=== PATIENT | female | born 1965 | race Caucasian/White ===

== ENCOUNTER 2017-07-31 10:29 | Day surgery (SDC) | payer OTHER ==
[2017-07-30 10:32] VITALS: BMI 23.8
[2017-07-31] MEDS ORDERED: BUPIVACAINE HCL/EPINEPHRINE/PF 30 ML VIAL IJ ONE (11:41)
[2017-07-31] MEDS ORDERED: MIDAZOLAM HCL 2 MG/2 ML SINGLE DOSE VIAL ONE (12:12)
[2017-07-31] MEDS ORDERED: DEXAMETHASONE SOD PHOSPHATE 4 MG/1 ML VIAL ONE (12:13)
[2017-07-31] MEDS ORDERED: KETOROLAC TROMETHAMINE 30 MG/1 ML VIAL ONE (12:13)
[2017-07-31] MEDS ORDERED: ONDANSETRON 4 MG/2 ML VIAL ONE (12:13)
[2017-07-31] MEDS ORDERED: ceFAZolin SODIUM 1 GM VIAL ONE (12:13)
[2017-07-31] MEDS ORDERED: LIDOCAINE HCL/PF 2% SDV 5ML VIAL ONE (12:14)
[2017-07-31] MEDS ORDERED: KETAMINE HCL 200 MG/20 ML VIAL ONE (12:34)
[2017-07-31] MEDS ORDERED: BUPIVACAINE 0.25% /EPI 1:200,000 10 ML VIAL INF ONE (12:45)
[2017-07-31] MEDS ORDERED: PROPOFOL 20 ML ONE (13:02)
--- NOTE | 2017-07-31 13:24 | OP ---
Operative Note - Note: Operative Date: 07/31/17 Pre-Operative Diagnosis: LEft knee trochlea osteochondral defect Operation: LEft knee arthroscopy, debridement,curretage and drilling Post-Operative Diagnosis: Same as Pre-op Surgeon: Sorin Mazariegos Anesthesiologist/VETERINARY MEDICINE SCIENTIST: Elder Callahan Anesthesia: General Operative Report Dictated: Yes
--- NOTE | 2017-07-31 13:24 | DS ---
Physical Examination Vital Signs: Vital Signs Temperature 98.6 F 07/31/17 11:28 Pulse Rate 68 07/31/17 11:28 Respiratory Rate 16 07/31/17 11:28 Blood Pressure 135/85 07/31/17 11:28 O2 Sat by Pulse Oximetry (%) 100 07/31/17 11:28 Discharge Summary Reason For Visit: CHONDROMALACIA LEFT PATELLA KNEE Condition: Good - Instructions Diet, Activity, Other Instructions: Post Operative Instructions: Knee Arthroscopy Dr Sorin Mazariegos 1. Pain following an arthroscopy is variable. Some patients will have more pain than others. You have been provided with a prescription for medication that contains a narcotic. You are not allowed to drive while on this medication. You should NOT take Tylenol (Acetaminophen) when taking the pain medication ( it will result in an overdose). Feel free to take medications such as Ibuprofen or Naprosyn in addition to the pain medicine if you do not have any problems with the NSAID class of medications. 2. You are allowed to remove the bandages and shower in 24 hours. Do not peel off the glue. You are not allowed to bathe or go swimming until the for 2 weeks. Put band-aids on the incisions after your shower and do not put any creams or lotions over the incisions. 3. You are allowed to put all your weight on the leg and bend your knee. You should expect your knee to be swollen after this procedure. 4. Apply ice to the knee for 15 min every hour or so. You may continue this for as many days as you like. 5. Please call the office to schedule a visit to have your sutures removed. 6. If for any reason you believe you may have an infection or are concerned, please feel free to call me. I can be reached through our office number 24 hours a day. 7. Please call our office with any questions; we will review the surgical findings during your post operative visit. Disposition: HOME - Home Medications Comprehensive Discharge Medication List: Ambulatory Orders Chlorzoxazone [Lorzone] 375 mg PO PRN PRN 07/31/17 Ibuprofen/Famotidine [Duexis 800-26.6 mg Tablet] 1 each PO PRN PRN 07/31/17
[2017-07-31] MEDS ORDERED: oxyCODONE HCL 5 MG TABLET PO PRN ×2 (14:11)
[2017-07-31] MEDS ORDERED: ONDANSETRON 4 MG/2 ML VIAL IVPUSH PRN (14:11)
[2017-07-31] MEDS ORDERED: LACTATED RINGERS SOLUTION 1,000 ML IV SCH (14:15)
[2017-07-31 14:30] VITALS: TEMP 97.4
[2017-07-31 17:08] VITALS: BP 124/72; PULSE 73
--- NOTE | 2017-08-05 15:40 | PATH ---
Surgical Pathology Report Patient Name: BRITT LOVELACE [facility]. Rec. #: [id number] /Age/Gender: 1965 (Age: 51) / F Account: [id number] Location: COUNT INCLUDES THE [facility] AMBUL[facility] Taken: 07/31/2017 Received: 07/31/2017 Reported: 08/05/2017 Physicians: Sorin Mazariegos M.D. Specimen(s) Received LEFT KNEE SHAVINGS Clinical History Chondromalacia left patella knee Final Diagnosis KNEE, LEFT, ARTHROSCOPIC SHAVINGS: CARTILAGE, BONE AND FIBROSYNOVIAL TISSUE. Electronically Signed Eri Mcallister M.D. Gross Description Received in formalin labeled "left knee shavings," is a 3.5 x 2.2 x 0.2 cm aggregate of cordero-yellow soft tissue fragments. The formalin is filtered and the specimen is entirely submitted in one cassette. 08/04/201708/04/2017
== END 2017-07-31 17:09 | disposition home or self-care (01) ==
LOC: FASU 10:29
PROVIDERS: ATTEND Orthopaedic Surgery
PROC: 0SBD4ZZ Excision of Left Knee Joint, Percutaneous Endoscopic Approach (ICD-10-PCS; 2017-07-31)
PROC: 0SQD4ZZ Repair Left Knee Joint, Percutaneous Endoscopic Approach (ICD-10-PCS; principal; 2017-07-31 12:25)
DX: M94.8X6 Other specified disorders of cartilage, lower leg (principal); M65.9 Synovitis and tenosynovitis, unspecified
CPT/HCPCS: 84703; 88304-TC; 94760

== ENCOUNTER 2022-05-20 04:42 | Day surgery (SDC) | payer OTHER ==
[2022-05-19 14:07] VITALS: BMI 24.0
[2022-05-20 09:27] VITALS: TEMP 97.3
[2022-05-20 11:43] VITALS: BP 112/77; PULSE 56
== END 2022-05-20 10:30 | disposition home or self-care (01) ==
LOC: JASU-ENDO 04:42
PROVIDERS: ATTEND Internal Medicine Gastroenterology
PROC: 0DJD8ZZ Inspection of Lower Intestinal Tract, Via Natural or Artificial Opening Endoscopic (ICD-10-PCS; principal; 2022-05-20 08:30)
DX: Z12.11 Encounter for screening for malignant neoplasm of colon (principal); K64.8 Other hemorrhoids

== ENCOUNTER 2022-08-12 05:18 | Day surgery (SDC) | payer OTHER ==
[2022-08-07 16:31] VITALS: BMI 23.4
[2022-08-12 09:58] VITALS: BP 109/77; PULSE 63; RESP 14; TEMP 97.9
== END 2022-08-12 10:28 | disposition home or self-care (01) ==
LOC: JASU-ENDO 05:18
PROVIDERS: ATTEND Internal Medicine Gastroenterology
PROC: 0DB78ZX Excision of Stomach, Pylorus, Via Natural or Artificial Opening Endoscopic, Diagnostic (ICD-10-PCS; 2022-08-12)
PROC: 0DB68ZX Excision of Stomach, Via Natural or Artificial Opening Endoscopic, Diagnostic (ICD-10-PCS; principal; 2022-08-12 08:30)
DX: D13.1 Benign neoplasm of stomach (principal); K29.50 Unspecified chronic gastritis without bleeding; I10 Essential (primary) hypertension
CPT/HCPCS: 88305-TC; 88341-TC

== ENCOUNTER 2022-08-25 04:40 | Day surgery (SDC) | payer OTHER ==
[2022-08-22 10:55] VITALS: BMI 23.8
[2022-08-25] MEDS ORDERED: MIDAZOLAM HCL 2 MG/2 ML SINGLE DOSE VIAL ONE (12:56)
[2022-08-25] MEDS ORDERED: ceFAZolin SODIUM 1 GM VIAL IVPB ONE (13:11)
[2022-08-25] MEDS ORDERED: ceFAZolin SODIUM 1 GM VIAL ONE (13:11)
[2022-08-25] MEDS ORDERED: DEXAMETHASONE SOD PHOSPHATE 4 MG/1 ML VIAL ONE (13:11)
[2022-08-25] MEDS ORDERED: ONDANSETRON 4 MG/2 ML VIAL ONE (13:35)
[2022-08-25] MEDS ORDERED: PROPOFOL 20 ML ONE ×2 (13:44→13:45)
[2022-08-25] MEDS ORDERED: LIDOCAINE HCL/PF (2%) 40 MG/2 ML VIAL ONE (13:47)
[2022-08-25] MEDS ORDERED: ACETAMINOPHEN INJECTION 100 ML IVPB ONE (13:50)
[2022-08-25] MEDS ORDERED: ONDANSETRON 4 MG/2 ML VIAL IVPUSH PRN (14:13)
[2022-08-25] MEDS ORDERED: oxyCODONE HCL 5 MG TABLET PO PRN (14:13)
[2022-08-25 15:32] VITALS: RESP 16
[2022-08-25 16:00] VITALS: BP 127/70; PULSE 78; TEMP 97.3
== END 2022-08-25 15:57 | disposition home or self-care (01) ==
LOC: JASU-SURG 04:40
PROVIDERS: ATTEND Obstetrics & Gynecology
PROC: 0UN98ZZ Release Uterus, Via Natural or Artificial Opening Endoscopic (ICD-10-PCS; 2022-08-25)
PROC: 0UB98ZZ Excision of Uterus, Via Natural or Artificial Opening Endoscopic (ICD-10-PCS; principal; 2022-08-25 11:00)
DX: D25.0 Submucous leiomyoma of uterus (principal); N85.6 Intrauterine synechiae
CPT/HCPCS: 88305-TC; 94760